=== PATIENT | female | born 1955 | race Caucasian/White ===

== ENCOUNTER 2019-02-09 14:28 | Day surgery (SDC) | payer MEDICARE, OTHER ==
[~2019-02-09 14:28] MED LIST: Acetaminophen TAB* 325 MG PO ONE; Buffered Lidocaine 1% SYRIN* 1 ML/SYRINGE INTRADERM ONE; Famotidine IV* 10 MG/ML 2 ML (20 mg) IV ONE; Gabapentin CAP(*) 300 MG PO ONE; Lactated Ringers 1000 ML Bag* 1,000 ML IV SCH; Levalbuterol 0.63MG/3ML NEB* UNIT OF USE INH PRN
[2019-02-09] MEDS ORDERED: Gabapentin CAP(*) 300 MG ONE (14:53)
[2019-02-09] MEDS ORDERED: Acetaminophen TAB* 325 MG ONE (14:54)
[2019-02-09] MEDS ORDERED: ceFAZolin 2 GM in NS PREMIX(*) 2 GM/100 ML BAG IVPB ONE (14:54)
[2019-02-09] MEDS ORDERED: Famotidine IV* 10 MG/ML 2 ML (20 mg) ONE (14:54)
[2019-02-09] MEDS ORDERED: Levalbuterol 0.63MG/3ML NEB* UNIT OF USE INH ONE (14:54)
[2019-02-09] MEDS ORDERED: Dexamethasone IV* 4 MG/ML 1 ML (4 MG) IV SLOW PU ONE (16:25)
[2019-02-09] MEDS ORDERED: Midazolam* 1 MG/ML 2 ML VIAL (2 MG) ONE ×2 (18:02→20:41)
[2019-02-09] MEDS ORDERED: Lidocaine 2% PF * 5 ML VIAL ONE ×2 (18:02→20:41)
[2019-02-09] MEDS ORDERED: fentaNYL* 50 MCG/ML 2 ML VIAL (100 MCG VIAL) ONE ×3 (18:02→21:41)
[2019-02-09] MEDS ORDERED: Dexamethasone IV* 4 MG/ML 1 ML (4 MG) ONE (20:41)
[2019-02-09] MEDS ORDERED: Propofol* 10 MG/ML 20 ML BTL ONE (20:41)
[2019-02-09] MEDS ORDERED: Ketorolac INJ* 30 MG/ML 1 ML VIAL ONE (20:41)
[2019-02-09] MEDS ORDERED: Ondansetron INJ* 2 MG/ML VIAL ONE (20:41)
[2019-02-09] MEDS ORDERED: Acetaminophen TAB* 325 MG PO PRN (21:28)
[2019-02-09] MEDS ORDERED: fentaNYL* 50 MCG/ML 2 ML VIAL (100 MCG VIAL) IV PRN (21:28)
[2019-02-09] MEDS ORDERED: DiMENhydriNATE IV* 50 MG/ML VIAL IV PUSH PRN (21:28)
[2019-02-09] MEDS ORDERED: Naloxone* 0.4 MG/ML 1 ML VIAL IV PRN (21:28)
[2019-02-09] MEDS ORDERED: Ondansetron INJ* 2 MG/ML VIAL IV PRN (21:28)
[2019-02-09] MEDS ORDERED: diPHENhydraMINE IV* 50 MG/ML 1 ml VIAL (BENADRYL) IV PRN (21:28)
[2019-02-09] MEDS ORDERED: HYDROcodone/ACETAMIN 5-325 MG* 1 TAB PO PRN ×2 (21:28)
[2019-02-09] MEDS ORDERED: Metoprolol Tartrate IV* 1 MG/ML 5 ML VIAL ONE (22:21)
[2019-02-09] MEDS ORDERED: Bupivacaine 0.5% W/EPI SDV* 10 ML VIAL INJ ONE (23:00)
[2019-02-10 00:34] VITALS: BP 131/72
--- NOTE | 2019-02-10 21:52 | OP ---
OPERATIVE REPORT: DATE OF OPERATION: 02/09/19 DATE OF : 51 SURGEON: Hima Lopes MD LIQUOR ESTABLISHMENT MANAGER: MELE Shay A physician cancer genetics assistant was required for the length of the procedure for assistance with patient positi oning, retraction, instrumentation, and closure. ANESTHESIOLOGIST: Dr. Arsh Rocha. ANESTHESIA: General anesthesia, local anesthesia with approximately 5 cc of Marcaine, 0.25% with ep inephrine. PRE-OP DIAGNOSIS: Right distal radius fracture, displaced, possibly intra- articular. POST-OP DIAGNOSIS: Right distal radius fracture, displaced, extra-articular. OPERATIVE PROCEDURE: Open reduction internal fixation, right distal radius fracture, extra-articular , with volar locking plate. INDICATIONS: The patient is a 63-year-old woman, originally from [facility] in [facility] to help her siste r recover from a hip arthroplasty surgery, who fell several days ago, saw me in clinic, where we disc ussed nonoperative and operative treatment of her right distal radius fracture. There had been an at tempted reduction, which improved the reduction somewhat in the [facility] Emergency Room. We decided on surgery. Discussed risks and potential complications of surgery. ANTIBIOTICS: Ancef 2 g IV. IV FLUIDS: See Anesthesia note. [id number] TIME: Approximately 87 minutes. TOURNIQUET TIME: 90 minutes at 250 mmHg, right upper arm. COMPLICATIONS: None. SPECIMEN: None. IMPLANTS: Synthes 3-hole volar variable angle locking plate. Size medium width. Locking 2.4-mm scre ws as well as 1 nonlocking 2.7-mm screw. ESTIMATED BLOOD LOSS: Minimal. DESCRIPTION OF PROCEDURE: In preoperative holding, the patient signed written consent. Operative ex tremity was marked in preoperative holding. There were several emergencies, so our start time was delayed 4 to 5 hours. The patient and her fami ly were understanding. Brought the patient into the room and kept her on the stretcher. Hand table was applied. The patien t was sedated and intubated. Right upper extremity was prepped and draped. Surgical time-out was pe rformed. Esmarch was applied and tourniquet was elevated to 250 mmHg. I made a standard skin incision for the volar approach to the distal radius. It was 7 cm long with a single zig distally as I crossed a flexion wrist crease. Dissected down to FCR tendon. I released a sheath above, retracted FCR, released subsheath. Retract ed the flexor pollicis longus muscle. Identified the pronator quadratus. Released it off the bone, radial most aspect. Released it smoothly on one sheet. I should state that stitches were placed in the FCR subsheath as I made my approach to identify that layer for later use. I identified fracture site. I debrided it. There was only one karolina of bone chip comminution more r adially, but otherwise this was a relatively non-comminuted fracture. Performed reduction maneuver. Placed a 0.062 K-wire through the radial styloid to provide some provisional reduction. Reduction a t this point was not perfect, but was good enough for the time being. Sized plates. Medium plate wa s picked to be the best size. I placed plate and pinned it into place. Obtained radiographs on the mini C-arm that showed excellent reduction of bone and excellent plate placement. I placed a 2.4-mm nonlocking screw in the oval hole proximally. I moved the plate slightly distally and re-pinned it. I liked the plate position and reduction. I placed a nonlocking screw 2.4 mm in the distal row impro ving the reduction. New radiographs showed anatomic reduction of bone and the plate nicely sucked do wn to bone. I placed a locking screw in the distal row. I then removed my K-wire through the radial styloid. I next filled the distal row of the plate with all locking screws and one hole in the second row. I placed in the shaft two 2.4-mm locking screws and I removed the nonlocking 2.4-mm screw and replaced it with a nonlocking 2.7-mm screw. Final radiographs showed anatomic reduction of bone. Excellent plate placement sucked down to bone. Plate was a tiny bit proximal but given her non-comminuted fracture, extra-articular, there was stil l excellent purchase in the distal fragment. My radial most screw in the distal row did not aim part icularly distal, although this was where the guide directed it. All screws were placed non- polyaxia l. Irrigation of wound. I closed the pronator quadratus muscle to the FCR subsheath with [id number] t stitches using Vicryl 3-0 and Vicryl 2-0 suture. This completely covered the plate excellently. I next closed the subcutaneous tissue with buried simple stitches using Vicryl 3-0 suture. Closed th e skin with a running stitch using nylon 4-0 suture. Placed approximately 5 cc of local Marcaine in the subcutaneous tissue about the skin incision. Dropped the tourniquet soon thereafter. Xeroform, 4x4's, sterile Webril. Placed a volar splint using plaster and overwrapped with an Dom bandage. I pr ovided a sling to use as needed for comfort. DISPOSITION: The patient was discharged home when medically stable. She had had some difficulties w ith narcotics preoperatively, so we prescribed her just tramadol as needed for pain control. The pat kurtis has plans to leave in 10 days postoperatively to fly back to [place]. The patient will see me 6 days postoperatively in clinic; at that point, we will take down her volar splint. We may or may n ot remove her sutures at that clinic visit. We will likely transition her to a removable wrist brace at that time. The patient will follow up with an orthopedic surgeon in [place] and I believe she a jim has an appointment with him or her. The patient has my cell phone number and is certainly tolu e to contact me while she is still in [place] or after she returns to [place], by phone. The patie nt will remain in her volar wrist splint until she sees me 6 days from now in clinic. Tramadol as ne eded for pain. [id number]/[facility] #: [id number]
== END 2019-02-10 00:55 | disposition home or self-care (01) ==
LOC: OR 14:28
PROVIDERS: ATTEND Orthopaedic Surgery
DX: S52.501A Unspecified fracture of the lower end of right radius, initial encounter for closed fracture (principal); W10.8XXA Fall (on) (from) other stairs and steps, initial encounter; Y93.89 Activity, other specified; Z96.643 Presence of artificial hip joint, bilateral
CPT/HCPCS: 76000; A9270-GY; C1713; C1776; J0690; J1100; J1885; J2250; J2405; J2704; J3010; J3490